=== PATIENT | female | born 1990 | race Caucasian/White ===

== ENCOUNTER 2016-05-08 19:19 | Inpatient (IN) | payer OTHER ==
[~2016-05-08] VITALS: Ht 160 cm; Wt 62.0 kg
[~2016-05-08 19:19] MED LIST: MOTRIN 600600 MG/TAB PO; PERCOCET 325 MG1 TA2 PO; PRENATAL1 TA1 PO; Senokot-S PO
[2016-05-08 20:38] LABS: BASO # 0.1 (0.0-0.2); BASO % 0.4 % (0.0-2.0); EOS # 0.1 (0.0-0.7); EOS % 0.5 % (0-4.0); GRAN # 13.4 (1.4-6.5); GRAN % 75.8 % (42.2-75.2); LYMPH # 2.2 (1.2-3.4); LYMPH % 12.5 % (20.0-51.0); MEAN CELL VOLUME 80 fl (80.0-100.0); MEAN CORPUSCULAR HGB CONC 31 g/dl (33.0-37.0); MEAN PLATELET VOLUME 9.4 fl (7.4-10.4); MONO # 1.8 (0.1-0.6); MONO % 10.1 % (1.7-9.3); PLATELET COUNT 727 K/mm3 (130-400); RED BLOOD COUNT 4.18 M/mm3 (4.10-5.30); REDCELL DISTRIBUTION WIDTH-CV 14.6 % (11.5-14.5); WHITE BLOOD COUNT 17.7 K/mm3 (4.8-10.8)
[2016-05-08 20:40] LABS: HEMATOCRIT 33.3 % (37.0-47.0); HEMOGLOBIN 10.4 g/dl (12.5-16.0); MEAN CORPUSCULAR HEMOGLOBIN 25 pg (27.0-31.0)
[2016-05-08 20:46] LABS: PH 5 (5-8); URINE APPEARANCE Cloudy; URINE BACTERIA Rare /hpf; URINE BILIRUBIN Negative (NEGATIVE); URINE BLOOD 3+ (NEGATIVE); URINE COLOR Amber; URINE GLUCOSE Negative (NEGATIVE); URINE KETONE Trace (NEGATIVE); URINE RBC >50 /hpf; URINE UROBILINOGEN Negative (NEGATIVE); URINE WBC >50 /hpf
[2016-05-08 21:00] LABS: ERYTHROCYTE SEDIMENTATION RATE 58 mm/hr (0-20)
[2016-05-08 21:05] LABS: ADJUSTED CALCIUM 9.7 mg/dL (8.4-10.2); ALBUMIN 3.8 gm/dL (3.5-5.0); BILIRUBIN,TOTAL 0.8 mg/dL (0.0-1.0); CALCIUM 9.5 mg/dL (8.4-10.2); CREATININE, serum 0.77 mg/dL (0.52-1.25); POTASSIUM 3.9 mmol/L (3.4-5.0)
[2016-05-08 21:54] LABS: C-REACTIVE PROTEIN 26.5 mg/dL (0.0-0.9)
[2016-05-08 23:47] VITALS: PULSE 101; TEMP 101.1
[2016-05-09] MEDS ORDERED: SPRINTEC 35 MCG1 TAB PO (00:30)
[2016-05-09 01:15] VITALS: BP 95/49; PULSE 92; TEMP 100.5
[2016-05-09 06:18] VITALS: BP 108/63; PULSE 78; TEMP 97.5
[2016-05-09 10:13] LABS: ADJUSTED CALCIUM 9.4 mg/dL (8.4-10.2); ALBUMIN 3.1 gm/dL (3.5-5.0); BILIRUBIN,TOTAL 0.8 mg/dL (0.0-1.0); CALCIUM 8.7 mg/dL (8.4-10.2); CREATININE, serum 0.72 mg/dL (0.52-1.25); POTASSIUM 3.5 mmol/L (3.4-5.0); TOTAL PROTEIN 6.7 gm/dL (6.4-8.2)
[2016-05-09 10:16] LABS: ADD PATHOLOGY DIFF REVIEW NO; HEMATOCRIT 29.2 % (37.0-47.0); HEMOGLOBIN 8.8 g/dl (12.5-16.0); MEAN CELL VOLUME 82 fl (80.0-100.0); MEAN CORPUSCULAR HEMOGLOBIN 25 pg (27.0-31.0); MEAN CORPUSCULAR HGB CONC 30 g/dl (33.0-37.0); MEAN PLATELET VOLUME 9.4 fl (7.4-10.4); PLATELET COUNT 648 K/mm3 (130-400); RED BLOOD COUNT 3.56 M/mm3 (4.10-5.30); WHITE BLOOD COUNT 14.7 K/mm3 (4.8-10.8)
[2016-05-09 10:38] VITALS: BP 106/56; PULSE 93; TEMP 99.1
[2016-05-09 11:28] LABS: BAND 17 % (0-10); NEUTROPHILS 55 % (42.0-75.2); TOTAL CELLS COUNTED 100
[2016-05-09 11:29] LABS: ANISOCYTOSIS 1+; HYPOCHROMIA 1+; PLATELET ESTIMATE INCREASED (NORMAL)
[2016-05-09 11:36] LABS: C-REACTIVE PROTEIN 25.1 mg/dL (0.0-0.9)
[2016-05-09 13:57] VITALS: BP 101/58; PULSE 98; TEMP 101.6
[2016-05-09 18:01] VITALS: BP 100/59; PULSE 78; TEMP 97.9
[2016-05-09 22:36] VITALS: BP 103/61; PULSE 82; TEMP 99
[2016-05-10 05:42] VITALS: BP 103/63; PULSE 76; TEMP 99.7
[2016-05-10 10:16] VITALS: BP 111/65; PULSE 79; TEMP 98.3
[2016-05-10 14:12] VITALS: BP 120/68; PULSE 76; TEMP 99.2
[2016-05-10 17:49] VITALS: BP 115/65; PULSE 86; TEMP 100.1
[2016-05-10 22:33] VITALS: BP 104/64; PULSE 66; TEMP 98.4
[2016-05-11 05:50] VITALS: BP 113/68; PULSE 60; TEMP 98
[2016-05-11 06:29] LABS: MEAN CELL VOLUME 82 fl (80.0-100.0); MEAN CORPUSCULAR HGB CONC 30 g/dl (33.0-37.0); MEAN PLATELET VOLUME 9.4 fl (7.4-10.4); PLATELET COUNT 686 K/mm3 (130-400); REDCELL DISTRIBUTION WIDTH-CV 14.6 % (11.5-14.5); WHITE BLOOD COUNT 7.1 K/mm3 (4.8-10.8)
[2016-05-11 06:30] LABS: HEMATOCRIT 29.5 % (37.0-47.0); HEMOGLOBIN 8.9 g/dl (12.5-16.0); MEAN CORPUSCULAR HEMOGLOBIN 25 pg (27.0-31.0)
[2016-05-11 06:49] LABS: CREATININE, serum 0.62 mg/dL (0.52-1.25); POTASSIUM 3.5 mmol/L (3.4-5.0)
[2016-05-11 07:57] LABS: C-REACTIVE PROTEIN 20.5 mg/dL (0.0-0.9)
[2016-05-11 09:21] VITALS: BP 118/63; PULSE 65; TEMP 97.9
[2016-05-11 13:24] VITALS: BP 111/72; PULSE 74; TEMP 97.9
[2016-05-11 17:10] VITALS: BP 101/82; PULSE 67
[2016-05-11 22:26] VITALS: BP 103/62; PULSE 68; TEMP 98.4
[2016-05-12 05:18] VITALS: BP 101/87; PULSE 66; TEMP 97.9
[2016-05-12 09:10] VITALS: BP 116/68; PULSE 76; TEMP 97.2
[2016-05-12 12:17] VITALS: BP 116/68; PULSE 76; TEMP 98.2
[2016-05-12 13:47] VITALS: BP 105/61; PULSE 75
[2016-05-12 14:51] VITALS: BP 103/71; PULSE 72
[2016-05-12] MEDS ORDERED: PREDNISONE20 MG PO (14:55)
[2016-05-12] MEDS ORDERED: PENTASA500 MG PO (14:56)
[2016-05-12] MEDS ORDERED: TYLENOL 325MG325 MG PO (14:56)
[2016-05-12] MEDS ORDERED: AMOXICILLIN 8751 TAB PO (14:57)
[2016-05-12] MEDS ORDERED: FLAGYL500 MG PO (14:57)
== END 2016-05-12 15:50 | disposition home or self-care (01) | DRG 385 ==
LOC: COL.ER 19:19 → SURG 22:40
PROVIDERS: Internal Medicine Gastroenterology; Physician Assistant; Surgery
PROC: 0DBC8ZX Excision of Ileocecal Valve, Via Natural or Artificial Opening Endoscopic, Diagnostic (ICD-10-PCS; principal; 2016-05-12 13:45)
DX: K50.014 Crohn's disease of small intestine with abscess (principal); E43 Unspecified severe protein-calorie malnutrition; K56.69 Other intestinal obstruction; D63.8 Anemia in other chronic diseases classified elsewhere
CPT/HCPCS: J1170; J1650; J2250; J2405; J2543; J3010; J7030; J7040; J7050; J7512; Q9967

== ENCOUNTER 2016-05-19 07:54 | Emergency (ER) | payer OTHER ==
[~2016-05-19] VITALS: Ht 160 cm; Wt 61.4 kg
[~2016-05-19 07:54] MED LIST changes: +AMOXICILLIN 8751 TAB PO; +FLAGYL500 MG PO; +PENTASA500 MG PO; +PREDNISONE20 MG PO; +SPRINTEC 35 MCG1 TAB PO; +TYLENOL 325MG325 MG PO
[2016-05-19] MEDS ORDERED: MULTI VITAMINS1 TAB PO (08:33)
[2016-05-19 08:56] LABS: ADJUSTED CALCIUM 9.7 mg/dL (8.4-10.2); ALBUMIN 3.5 gm/dL (3.5-5.0); BILIRUBIN,TOTAL 0.6 mg/dL (0.0-1.0); C-REACTIVE PROTEIN 1.6 mg/dL (0.0-0.9); CALCIUM 9.3 mg/dL (8.4-10.2); CREATININE, serum 0.57 mg/dL (0.52-1.25); POTASSIUM 3.4 mmol/L (3.4-5.0); TOTAL PROTEIN 6.9 gm/dL (6.4-8.2)
[2016-05-19 09:15] LABS: PH 7 (5-8); SQUAMOUS EPITHELIAL 0-2 /hpf; URINE APPEARANCE Clear; URINE BACTERIA None Seen /hpf; URINE BILIRUBIN Negative (NEGATIVE); URINE BLOOD Negative (NEGATIVE); URINE COLOR Yellow; URINE GLUCOSE Negative (NEGATIVE); URINE KETONE Negative (NEGATIVE); URINE RBC 0-2 /hpf; URINE UROBILINOGEN Negative (NEGATIVE)
[2016-05-19 09:18] VITALS: TEMP 98
[2016-05-19] MEDS ORDERED: ZOFRAN 4MG T4 MG/TAB PO (09:26)
[2016-05-19] MEDS ORDERED: NORCO 325 MG-51 TAB PO (09:26)
[2016-05-19 09:37] LABS: BASO % 0.2 % (0.0-2.0); EOS % 0.2 % (0-4.0); GRAN # 16.4 (1.4-6.5); GRAN % 87.1 % (42.2-75.2); LYMPH # 1.4 (1.2-3.4); LYMPH % 7.3 % (20.0-51.0); MEAN CELL VOLUME 83 fl (80.0-100.0); MEAN CORPUSCULAR HGB CONC 30 g/dl (33.0-37.0); MEAN PLATELET VOLUME 9.5 fl (7.4-10.4); MONO # 0.8 (0.1-0.6); MONO % 4.3 % (1.7-9.3); PLATELET COUNT 581 K/mm3 (130-400); RED BLOOD COUNT 3.74 M/mm3 (4.10-5.30); REDCELL DISTRIBUTION WIDTH-CV 16.1 % (11.5-14.5); WHITE BLOOD COUNT 18.8 K/mm3 (4.8-10.8)
[2016-05-19 09:42] LABS: HEMOGLOBIN 9.3 g/dl (12.5-16.0); MEAN CORPUSCULAR HEMOGLOBIN 25 pg (27.0-31.0)
[2016-05-19 10:04] LABS: ERYTHROCYTE SEDIMENTATION RATE 22 mm/hr (0-20)
[2016-05-19 11:40] VITALS: BP 114/69; PULSE 64
== END 2016-05-19 11:47 | disposition home or self-care (01) ==
LOC: COL.ER 07:54
PROVIDERS: Emergency Medicine
DX: K50.114 Crohn's disease of large intestine with abscess (principal)
CPT/HCPCS: J1170; J2550; J7030; Q9967

== ENCOUNTER → 2016-05-20 | Outpatient (CLI) | payer OTHER ==
[~2016-05-20] MED LIST changes: +MULTI VITAMINS1 TAB PO; +NORCO 325 MG-51 TAB PO; +ZOFRAN 4MG T4 MG/TAB PO
== END ==
LOC: COL.LAB 11:25
DX: Z01.89 Encounter for other specified special examinations (principal)

== ENCOUNTER → 2018-06-08 | Outpatient (CLI) | payer BC | LOC: COL.RAD 10:22 | DX: R94.5 Abnormal results of liver function studies (principal) ==

== ENCOUNTER → 2019-03-23 | Outpatient (CLI) | payer BC | LOC: COL.RAD 07:36 | DX: K50.90 Crohn's disease, unspecified, without complications (principal) | CPT/HCPCS: A9585 ==

== ENCOUNTER 2023-11-04 13:51 | Inpatient (IN) | payer BC ==
[~2023-11-04] VITALS: Ht 157.5 cm; Wt 55.6 kg
[2023-11-23] MEDS ORDERED: Celecoxib 200 MG CAP PO SCH (12:45)
[2023-11-23] MEDS ORDERED: Acetaminophen 500 MG TAB PO SCH (12:45)
[2023-11-23] MEDS ORDERED: Gabapentin 100 MG CAP PO SCH (12:45)
[2023-11-24] VITALS (11 sets, daily range): BP systolic 91–99; BP diastolic 53–74; PULSE 82–104; TEMP 97.9–98.3
[2023-11-24] MEDS ORDERED: LR 1,000 ML IV SCH ×2 (09:15→14:45)
[2023-11-24] MEDS ORDERED: droPERidol 2.5 MG/ML 2 ML VIAL IV PRN (09:15)
[2023-11-24] MEDS ORDERED: HYDROmorphone 1 MG/1 ML SYRINGE [PACU/SDC ONLY] IV PRN (09:15)
[2023-11-24] MEDS ORDERED: hydrALAZINE 20 MG/ML 1 ML VIAL IV PRN (09:15)
[2023-11-24] MEDS ORDERED: Ondansetron 4 MG/2 ML VIAL IV PRN ×2 (09:15→14:45)
[2023-11-24] MEDS ORDERED: fentaNYL 50 MCG/ML 1 ML SYRINGE/VIAL [PACU/SDC ONLY] IV PRN (09:15)
[2023-11-24] MEDS ORDERED: metroNIDAZOLE 500 MG/100 ML IVPB IV SCH (09:30)
[2023-11-24 09:35] LABS: HEMATOCRIT 37.4 % (37.0-47.0); HEMOGLOBIN 12.2 g/dl (12.5-16.0); MEAN CELL VOLUME 96 fl (80.0-100.0); MEAN CORPUSCULAR HEMOGLOBIN 31 pg (27-31); MEAN CORPUSCULAR HGB CONC 33 g/dl (33.0-37.0); MEAN PLATELET VOLUME 9.5 fl (7.4-10.4); PLATELET COUNT 779 K/mm3 (130-400); REDCELL DISTRIBUTION WIDTH-CV 15.6 % (11.5-14.5)
[2023-11-24] MEDS ORDERED: fentaNYL 50 MCG/ML 5 ML VIAL ONE (09:38)
[2023-11-24] MEDS ORDERED: Midazolam 2 MG/2 ML VIAL ONE (09:38)
[2023-11-24] MEDS ORDERED: Rocuronium 50 MG/5 ML Multi-Dose VIAL ONE (09:39)
[2023-11-24] MEDS ORDERED: Glycopyrrolate 0.2 MG/ML 1 ML VIAL ONE (09:41)
[2023-11-24] MEDS ORDERED: Ondansetron 4 MG/2 ML VIAL ONE (09:41)
[2023-11-24] MEDS ORDERED: NS 10 ML IV ONE (09:41)
[2023-11-24] MEDS ORDERED: dexAMETHasone 10 MG/ML VIAL ONE (09:41)
[2023-11-24] MEDS ORDERED: Lidocaine PF 2% (20 MG/ML) 5 ML VIAL ONE (09:41)
--- NOTE | 2023-11-24 09:51 | NUR ---
DR. KEYES NOTIFIED OF ELEVATED WBC OF 23.5. NO ORDERS. STATES IT WAS ELEVATED ON PREVIOUS LAB WORK ONE WEEK.
[2023-11-24 10:05] LABS: ALBUMIN 2.8 g/dL (3.5-5.0); BILIRUBIN,TOTAL 0.3 mg/dL (0.2-1.2); CALCIUM 9.7 mg/dL (8.4-10.2); CREATININE, serum 0.68 mg/dL (0.57-1.11); POTASSIUM 3.1 mEq/L (3.5-4.5); TOTAL PROTEIN 7.2 g/dl (6.2-8.1)
--- NOTE | 2023-11-24 10:17 | NUR ---
CMP RESULTS PLACED ON CHART AND ALONA Justin CRNA INFORMED OF POTASSIUM 3.1. NO ORDERS RECEIVED. PATIENT WAS TAKEN TO THE PACU PER KARRIE, SIZE MARKER AND BELONGINGS WERE ALSO TAKEN TO PACU.
[2023-11-24 10:26] LABS: BAND 14 % (0-10); LYMPHOCYTE 4 % (20.0-51.0); NEUTROPHILS 73 % (42.0-75.2); PLATELET ESTIMATE INCREASED (NORMAL)
[2023-11-24] MEDS ORDERED: metroNIDAZOLE 100 ML IV ONE (10:41)
[2023-11-24] MEDS ORDERED: fentaNYL 50 MCG/ML 2 ML VIAL ONE ×2 (12:20→13:30)
[2023-11-24] MEDS ORDERED: Topical Skin Adhesive 1 EACH (1 ML) TOP ONE (12:53)
[2023-11-24] MEDS ORDERED: HYDROmorphone 2 MG/1 ML VIAL ONE (13:44)
[2023-11-24] MEDS ORDERED: LR 1,000 ML IV ONE (13:46)
[2023-11-24] MEDS ORDERED: oxyCODONE 5 MG TAB PO PRN (14:45)
[2023-11-24] MEDS ORDERED: Naloxone 0.4 MG/ML VIAL IV PRN (14:45)
[2023-11-24] MEDS ORDERED: Ibuprofen 600 MG TAB PO PRN (14:45)
[2023-11-24] MEDS ORDERED: Morphine 4 MG/ML VIAL IV PRN (15:00)
[2023-11-24] MEDS ORDERED: Acetaminophen 500 MG TAB PO SCH (15:43)
[2023-11-24] MEDS ORDERED: Ketorolac 15 MG/ML VIAL IV ONE (15:47)
--- NOTE | 2023-11-24 16:10 | NUR ---
pt admitted to room from pacu, mother at bedside. pt a&ox4. x4 lap sites, midline, and abcess incisions are all cdi. mott to dd w yellow urine output. scds to ble. vss. pt rates pain a 4.5/10 which is tolerable, reports would like pain medication when pain is a 5.5/10. med rec complete. fluids infusing into right hand. pt oriented to room. call light in reach. no needs at this time.
[2023-11-24] MEDS ORDERED: HYDROmorphone 0.5 MG/0.5 ML SYRINGE IV PRN (16:15)
--- NOTE | 2023-11-24 19:01 | NUR ---
pt reports increased pain and no relief from roxicodone. called Dr Cortes about pts soft blood pressures, last one reading 99/66. Dr Cortes ok with giving dilaudid per emar. states to change dosage to every 4 hours if systolic pressure drops below 90.
--- NOTE | 2023-11-24 19:09 | NUR ---
RECEIVED CHANGE OF SHIFT REPORT FROM DAY SHIFT NURSE. PATIENT RESTING IN BED, IV FLUIDS INFUSING WITH NO PROBLEMS, ON ROOM AIR, FAMILY AT BEDSIDE, PATIENT REQUESTING IV DILAUDID, SEE MAR FOR PAIN MEDS GIVEN. ARROYO IN PLACE.
[2023-11-25] VITALS (13 sets, daily range): BP systolic 94–104; BP diastolic 58–70; PULSE 66–72; TEMP 97.5–98.1
--- NOTE | 2023-11-25 01:44 | NUR ---
COMPLAINING OF SOME DISCOMFORT FROM ARROYO CATHETER. GIVEN OXYCODONE FOR COMPLAINT OF DISCOMFORT, SEE MAR. PATIENT DENIES ANY OTHER NEEDS OR CONCERNS AT THIS TIME. ARROYO CATHETER IN PLACE, DRAINING CLEAR YELLOW URINE. IV FLUIDS INFUSING WITH NO PATIENT COMPLAINTS OR CONCERNS.
[2023-11-25 06:18] LABS: MEAN CELL VOLUME 95 fl (80.0-100.0); MEAN CORPUSCULAR HGB CONC 32 g/dl (33.0-37.0); MEAN PLATELET VOLUME 9.8 fl (7.4-10.4); RED BLOOD COUNT 2.96 M/mm3 (4.10-5.30); REDCELL DISTRIBUTION WIDTH-CV 15.5 % (11.5-14.5)
--- NOTE | 2023-11-25 06:20 | NUR ---
SEE MAR FOR PAIN MEDS GIVEN PRIOR TO WALK PER PATIENT REQUEST. ARROYO CATH CONTINUES, PATENT, DRAINING [place] YELLOW CLEAR URINE. DENIES NAUSEA AT THIS TIME. IV FLUIDS CONTINUES TO INFUSE WITH NO PROBLEMS. DENIES CHILLING, REPORTS FEELS HOT/SWEATY.
[2023-11-25 06:29] LABS: CALCIUM 8.2 mg/dL (8.4-10.2); CREATININE, serum 0.65 mg/dL (0.57-1.11); MAGNESIUM 1.7 mg/dL (1.6-2.6); PHOSPHOROUS 4.6 mg/dL (2.3-4.7); POTASSIUM 4.1 mEq/L (3.5-4.5)
[2023-11-25 06:33] LABS: HEMATOCRIT 28.2 % (37.0-47.0); MEAN CORPUSCULAR HEMOGLOBIN 30 pg (27-31); PLATELET COUNT 640 K/mm3 (130-400)
--- NOTE | 2023-11-25 07:00 | NUR ---
TOLERATING WALKING IN HALLS WITH NURSING WITH NO COMPLAINTS OF PAIN/NAUSEA AT TIME OF WALK. OBSERVED INCREASED URINE OUTPUT IN ARROYO CATH AFTER WALKING. PATIENT DENIES PASSING FLATUS, DENIES FEELING BLOATED.
--- NOTE | 2023-11-25 07:00 | NUR ---
CHANGE OF SHIFT REPORT GIVEN TO DAY SHIFT NURSES, EDVIN.
[2023-11-25 07:47] LABS: ANISOCYTOSIS 1+; BAND 1 % (0-10); HYPOCHROMIA 1+; LYMPHOCYTE 4 % (20.0-51.0); METAMYELOCYTE 2 % (0-0); NEUTROPHILS 88 % (42.0-75.2); PLATELET ESTIMATE INCREASED (NORMAL)
--- NOTE | 2023-11-25 09:56 | NUR ---
Pt. requests higher dose of oxycodone; states she takes 10 mg at home. Pt. is also requesting mott removal. While administering meds per JUL, pt. refused Lovenox injection. Notified physician, Dr. Suero, of pt. requests and refusal. New orders received.
[2023-11-25] MEDS ORDERED: oxyCODONE 5 MG TAB PO PRN (10:15)
--- NOTE | 2023-11-25 10:17 | NUR ---
Discontinued mott. Balloon intact. Pt. tolerated well. Emptied 225 mL dark yellow urine clear in clarity from catheter bag. Pericare performed.
--- NOTE | 2023-11-25 10:50 | NUR ---
family caseworker met with pt and her mother, Mirella to discuss intake information. She reports to live with her family in [place]. She sees [facility] for PCP needs [facility]. She confirmed her [employer] insurance. She reports her , Mark [phone] as her contact. She does not have a DPOA-HC and is agreeable to her being NO[facility]. She is indpendent with [employer] and uses no DME. She intends to return home upon discharge. Discharge Plan: home
--- NOTE | 2023-11-25 12:23 | NUR ---
D: Field Training Agent stopped by room on rounds. A: Pt was resting and content with mom in the room. Pt has no needs right now. P: Field Training Agent informed pt that if she needed anything to let her nurse know. Field Training Agent will follow up as needed.
--- NOTE | 2023-11-25 18:43 | NUR ---
RECEIVED CHANGE OF SHIFT REPORT FROM DAY SHIFT NURSE. PATIENT RESTING IN BED, CALL LIGHT WITHIN REACH. DENIES ANY NEEDS AT TIME OF REPORT.
[2023-11-26] VITALS (8 sets, daily range): BP systolic 91–98; BP diastolic 56–61; PULSE 58–75; TEMP 97.5–97.7
--- NOTE | 2023-11-26 00:57 | NUR ---
REPORTING LEVEL 7/10 RIGHT LOWER QUADRANT PAIN, FROM WET TO DRY DRSG "PRESSURE". SEE MAR FOR PAIN MED GIVEN.
[2023-11-26 06:13] LABS: MEAN CELL VOLUME 99 fl (80.0-100.0); MEAN CORPUSCULAR HGB CONC 31 g/dl (33.0-37.0); MEAN PLATELET VOLUME 9.8 fl (7.4-10.4); PLATELET COUNT 636 K/mm3 (130-400); RED BLOOD COUNT 2.55 M/mm3 (4.10-5.30); REDCELL DISTRIBUTION WIDTH-CV 15.9 % (11.5-14.5)
[2023-11-26 06:15] LABS: HEMATOCRIT 25.3 % (37.0-47.0); HEMOGLOBIN 7.9 g/dl (12.5-16.0); MEAN CORPUSCULAR HEMOGLOBIN 31 pg (27-31)
[2023-11-26 06:31] LABS: CALCIUM 8.3 mg/dL (8.4-10.2); CREATININE, serum 0.62 mg/dL (0.57-1.11); POTASSIUM 3.7 mEq/L (3.5-4.5)
--- NOTE | 2023-11-26 07:01 | NUR ---
CHANGE OF SHIFT REPORT GIVEN TO DAY SHIFT NURSEPIERRE. PATIENT RESTING IN BED, UP IN ROOM INDEPENDENTLY. REPORTED NO NEEDS AT TIME OF REPORT.
--- NOTE | 2023-11-26 10:11 | NUR ---
PT UP INDEPENDENT IN ROOM, ALERT, REPORTS LOOSE BM AND PASSING GAS, DENIES PAIN BUT GIVEN SCHEDULED TYLENOL AND EDUCATED ON PURPOSE OF SCHEDULED MEDS. WET TO DRY DRESSING INTACT WITHOUT SHADOWING TO RLQ.
--- NOTE | 2023-11-26 16:13 | NUR ---
PT C/O PAIN WITH IV SITE IN HAND. MINIMAL PINK AREA AROUND INSERTION SITE. PT REQUESTS IV SITE BE DISCONTINUED, VERBALIZED UNDERSTANDING OF NEED TO REPLACE SITE BEFORE NEXT IV ANTIBIOTIC TREATMENT. PT AGREEABLE WITH PLAN, IV DC'D, HEMOSTASIS ACHIEVED, BANDAID APPLIED. PT DENIES OTHER NEEDS.
[2023-11-26] MEDS ORDERED: DAZIDOX10 MG PO (16:24)
--- NOTE | 2023-11-26 17:36 | NUR ---
DISCHARGE ORDER RECEIVED. PT AGREEABLE TO PLAN. DISCHARGE EDUCATION PROVIDED, PT VERBALIZES UNDERSTANDING. PCT JULIO CESAR ASSISTED PT AND SPOUSE TO VEHICLE. PT DENIES NEEDS, AWARE OF RX AT PHARMACY.
--- NOTE | 2023-11-26 17:40 | NUR ---
PATIENT HEALTH SUMMARY, DISCHARGE SUMMARY, AND HOME MEDS PRINTED AND REVIEWED WITH PT. STRESSED IMPORTANCE OF FOLLOW UP APPOINTMENTS. REVIEWED MEDICATIONS, NOTIFIED OF PRESCRIPTION CALLED TO PHARMACY OF PT CHOICE. BELONGINGS GATHERED BY JULIO CESAR, INCLUDING PHONE. PT TRANSPORTED VIA W/C. PT AND SPOUSE DENY QUESTIONS.
== END 2023-11-26 16:48 | disposition home or self-care (01) | DRG 330 ==
LOC: INPTSU 11-24 08:31 → SURG 11-24 08:31
PROVIDERS: ADMIT Surgery
PROC: 8E0W4CZ Robotic Assisted Procedure of Trunk Region, Percutaneous Endoscopic Approach (ICD-10-PCS; 2023-11-24)
PROC: 0DTF0ZZ Resection of Right Large Intestine, Open Approach (ICD-10-PCS; principal; 2023-11-24 12:00)
DX: K50.914 Crohn's disease, unspecified, with abscess (principal); K63.2 Fistula of intestine; Z53.31 Laparoscopic surgical procedure converted to open procedure
CPT/HCPCS: A4314; A9284; J0690; J1100; J1170; J1836; J1885; J2250; J2405; J2543; J2704; J2795; J3010; J7120

== ENCOUNTER → 2023-12-24 | Outpatient (CLI) | payer BC ==
[~2023-12-24] MED LIST changes: +DAZIDOX10 MG PO
[2023-12-24 12:52] LABS: BASO % 0.7 % (0.0-2.0); EOS # 0.2 K/mm3 (0.0-0.7); EOS % 3.1 % (0.0-4.0); GRAN # 3.6 K/mm3 (1.4-6.5); GRAN % 67.1 % (42.2-75.2); HEMOGLOBIN 10.8 g/dl (12.5-16.0); LYMPH % 17.9 % (20.0-51.0); MEAN CELL VOLUME 95 fl (80.0-100.0); MEAN CORPUSCULAR HEMOGLOBIN 29 pg (27-31); MEAN CORPUSCULAR HGB CONC 31 g/dl (33.0-37.0); MEAN PLATELET VOLUME 9.5 fl (7.4-10.4); MONO # 0.6 K/mm3 (0.1-0.6); MONO % 10.3 % (1.7-9.3); PLATELET COUNT 596 K/mm3 (130-400); RED BLOOD COUNT 3.72 M/mm3 (4.10-5.30)
[2023-12-24 13:01] LABS: HEMATOCRIT 35.3 % (37.0-47.0)
[2023-12-24 13:02] LABS: ALBUMIN 3.5 g/dL (3.5-5.0); BILIRUBIN,TOTAL 0.3 mg/dL (0.2-1.2); C-REACTIVE PROTEIN 0.52 mg/dL (0.00-0.50); CALCIUM 9.4 mg/dL (8.4-10.2); CREATININE, serum 0.69 mg/dL (0.57-1.11); TOTAL PROTEIN 7.3 g/dl (6.2-8.1)
[2023-12-25 00:46] LABS: HEPATITIS B SURFACE ANTIBODY <2.0 (()); HEPATITIS B SURFACE ANTIGEN Negative (Negative); HEPATITIS C VIRUS ANTIBODY Negative (Nonreactiv)
[2023-12-25 18:06] LABS: TB GOLD INTERPRETATION Negative (Negative)
== END ==
LOC: COL.LAB 11:50
PROVIDERS: Internal Medicine
DX: K50.918 Crohn's disease, unspecified, with other complication (principal); Z79.899 Other long term (current) drug therapy